=== PATIENT | female | born 1995 | race American Indian/Alaskan Native ===

== ENCOUNTER 2022-03-20 19:48 | Outpatient (CLI) | payer MEDICAID ==
[2022-03-20 23:24] VITALS: BP 134/84
[2022-03-20 23:39] LABS: Basophils % (Auto) 0.3 % (0.0-1.8); Eosinophils % (Auto) 0.3 % (0.0-4.3); Hemoglobin 9.4 gm/dl (10.1-14.3); Lymphocytes # (Auto) 1.7 K/mm3 (1.2-5.4); Lymphocytes % (Auto) 13.8 % (13.4-35.0); Mean Corpuscular HGB Conc 30 % (30-34); Mean Corpuscular Volume 71 fl (79-97); Monocytes # (Auto) 1.3 K/mm3 (0.0-0.8); Monocytes % (Auto) 10.9 % (0.0-7.3); Platelet Count 266 K/mm3 (140-440); Red Blood Count 4.38 M/mm3 (3.65-5.03); Red Cell Distribution Width 15.4 % (13.2-15.2)
[2022-03-20 23:40] LABS: Mucus,Urine FEW /HPF
[2022-03-20 23:54] LABS: Amphetamine Screen,Urine PRESUMPTIVE NEGATIVE; Benzodiazepines Screen,Urine PRESUMPTIVE NEGATIVE; Cannabinoid Screen,Urine PRESUMPTIVE POSITIVE; Cocaine Screen,Urine PRESUMPTIVE NEGATIVE; Methadone Screen,Urine PRESUMPTIVE NEGATIVE; Opiate Screen,Urine PRESUMPTIVE NEGATIVE
[2022-03-20 23:58] LABS: Bilirubin,Urine NEG (Negative); Blood,Urine SM (Negative); Color,Urine Yellow (Yellow); Urobilinogen,Urine < 2.0 mg/dL (<2.0)
--- NOTE | 2022-03-21 01:01 | Ultrasound Report ---
US OB follow up INDICATION / CLINICAL INFORMATION: TAPAN, EFW, GESTATIONAL AGE COMPARISON: None available. TECHNIQUE: Using a transcutaneous probe, multiple grayscale, color Doppler, and spectral Doppler imag es of the uterus and fetus were captured and stored. FINDINGS: Single cephalic fetus with heart rate of 154 bpm. Amniotic fluid index is within normal limits with TAPAN of 19.2 cm. Biparietal Diameter = 7.3 cm = 29, 1 weeks, days Head Circumference = 26.9 cm = 29, 2 weeks, days Abdominal Circumference = 23.4 cm = 27, 5 weeks, days Femur Length = 5.5 cm = 28, 6 weeks, days Average Ultrasound Age (AUA) = 28, 5 weeks, days. EDC 06/07/2022. Clinical estimated gestational age based on LMP of 06/22/2021 is 38 weeks 5 days, EDC 03/29/2022. Estimated weight = 1217 g. Growth percentile not calculated. IMPRESSION: 1. IUGR is suggested. 2. Single living fetus with estimated gestational age of 28 weeks 5 days, a significant discrepancy f rom clinical estimate of 38 weeks 5 days. 3. Amniotic fluid index is within normal limits. 4. Estimated weight of 1217 g. Signer Name: Frandy Torre II, MD Signed: 03/21/2022 12:57 AM Workstation Name: [id number]
[2022-03-21] MEDS ORDERED: TERBUTALINE 1 MG/1 ML INJ SUB-Q ONE (01:21)
== END 2022-03-21 00:51 | disposition home or self-care (01) ==
LOC: TRG 19:48 → APU 19:50 → TRG 03-21 00:51
PROVIDERS: ATTEND Obstetrics & Gynecology
DX: O26.893 Other specified pregnancy related conditions, third trimester (principal); R10.9 Unspecified abdominal pain; M54.50 Low back pain, unspecified; Z3A.38 38 weeks gestation of pregnancy
CPT/HCPCS: 36415; 76816; 80307; 81001; 85025; 87076; 87086; 87186

== ENCOUNTER 2022-05-30 14:44 | Inpatient (IN) | payer MEDICAID ==
--- NOTE | 2022-05-31 06:28 | Ultrasound Report ---
US OB follow up INDICATION / CLINICAL INFORMATION: WELL BEING COMPARISON: None available. TECHNIQUE: Using a transcutaneous probe, multiple grayscale, color Doppler, and spectral Doppler imag es of the uterus and fetus were captured and stored. biophysical profile score was performed. FINDINGS: biophysical profile score of 4/8. heart rate 153 bpm. Score of 0 for posturing tone . Score of 0 for qualitative amniotic fluid volume. Estimated weight is 39 weeks 0 days. TAPAN 1.6 cm. IMPRESSION: 1. biophysical profile score 4/8. Signer Name: Frandy Torre II, MD Signed: 05/31/2022 6:24 AM Workstation Name: [id number]
--- NOTE | 2022-05-31 06:30 | Ultrasound Report ---
US OB BPP wo non-stress INDICATION / CLINICAL INFORMATION: WELL BEING COMPARISON: None available. FINDINGS: BREATHING MOVEMENT = 2 GROSS BODY MOVEMENT = 2 TONE = 0 QUALITATIVE AMNIOTIC FLUID VOLUME = 0 TOTAL BIOPHYSICAL SCORE = 4/8 heart rate 153 bpm. TAPAN 1.6 cm. IMPRESSION: 1. biophysical profile score as detailed. Signer Name: Frandy Torre II, MD Signed: 05/31/2022 6:26 AM Workstation Name: [id number]
[2022-05-31] MEDS ORDERED: METOCLOPRAMIDE 10 MG/2 ML INJ IV SCH (07:30)
[2022-05-31] MEDS ORDERED: BICITRA ORAL LIQD 30ML PO SCH (07:30)
[2022-05-31] MEDS ORDERED: FAMOTIDINE 20 MG/2 ML INJ IV SCH (07:30)
[2022-05-31] MEDS ORDERED: LACTATED RINGERS 1,000 ML IV SCH (07:30)
[2022-05-31] MEDS ORDERED: ceFAZolin/Water 2 GM/20 ML 2 GM/20 ML SYRINGE IV NR (08:00)
[2022-05-31] MEDS ORDERED: OXYTOCIN DRIP 30 UNITS/500 ML BAG IV SCH ×2 (08:00→11:00)
[2022-05-31] MEDS ORDERED: METHYLERGONOVINE MALEATE 0.2 MG/ML VIAL IM ONE (08:09)
[2022-05-31] MEDS ORDERED: OXYTOCIN 10 UNIT/1 ML INJ ONE (08:11)
[2022-05-31] MEDS ORDERED: miSOPROStol 200 MCG TAB ONE (08:11)
--- NOTE | 2022-05-31 08:12 | Anesthesia Day of Surgery ---
Anesthesia Day of Surgery - Day of Surgery Patient Examined: Yes Patient H&P Reviewed: Yes Patient is NPO: Yes
--- NOTE | 2022-05-31 08:17 | Anesthesia Consultation ---
Anesthesia Consult and Med Hx Date of service: 05/31/22 - Airway Anesthetic Teeth Evaluation: Good Mallampati Class: Class III Intubation Access Assessment: Possibly Difficult - Pulmonary Exam CTA: Yes - Cardiac Exam Anesthetic Concerns: csection x2 2019 - Pre-Operative Health Status ASA Pre-Surgery Classification: ASA3 Proposed Anesthetic Plan: Spinal - Pulmonary Hx Smoking: No Hx Asthma: No Hx Respiratory Symptoms: No - Cardiovascular System Hx Hypertension: No - Central Nervous System Hx Seizures: No Hx Back Pain: Yes Hx Psychiatric Problems: Yes (anxiety ) - Gastrointestinal Hx Gastroesophageal Reflux Disease: No - Endocrine Hx Renal Disease: No Hx Hypothyroidism: No Hx Hyperthyroidism: No - Hematic Hx Anemia: No Hx Sickle Cell Disease: No - Other Systems Hx Alcohol Use: No Hx Substance Use: No Hx Obesity: Yes
[2022-05-31 08:18] LABS: Basophils # (Auto) 0.1 K/mm3 (0.0-0.1); Basophils % (Auto) 0.7 % (0.0-1.8); Eosinophils % (Auto) 0.4 % (0.0-4.3); Lymphocytes # (Auto) 2.2 K/mm3 (1.2-5.4); Lymphocytes % (Auto) 26.8 % (13.4-35.0); Mean Corpuscular HGB Conc 30 % (30-34); Mean Corpuscular Volume 70 fl (79-97); Monocytes % (Auto) 12.1 % (0.0-7.3); Platelet Count 314 K/mm3 (140-440); Red Blood Count 4.63 M/mm3 (3.65-5.03); Red Cell Distribution Width 18.6 % (13.2-15.2)
--- NOTE | 2022-05-31 08:19 | History and Physical Report ---
History of Present Illness Date of examination: 05/30/22 Date of admission: 05/30/22 Chief complaint: Abd pain History of present illness: by . 39 wks. Oligo and IUGR on sono. No care except for an ER visit to [facility] where she was given a due date of 06/06/22 Past History Past Medical History: no pertinent history Past Surgical History: section Social history: no significant social history - Obstetrical History Expected Date of Delivery: 06/06/22 Actual Gestation: 39 Week(s) 1 Day(s) : 2 Para: 1 Medications and Allergies Allergies Allergy/AdvReac Type Severity Reaction Status Date / Time No Known Allergies Allergy Verified 05/31/22 08:00 Home Medications Medication Instructions Recorded Confirmed Last Taken Type No Known Home Medications [No 05/30/22 05/30/22 Unknown History Reported Home Medications] Active Meds: Active Medications Acetaminophen (Acetaminophen 325 Mg Tab) 650 mg PO Q4H PRN PRN Reason: Pain, Mild (1-3) Butorphanol Tartrate (Butorphanol 2 Mg/1 Ml Inj) 1 mg IV Q2H PRN PRN Reason: Pain, Moderate(4-6) LABOR PAIN Citric Acid/Sodium Citrate (Bicitra Oral Liqd 30ml) 30 ml PO ONCE ONE Stop: 05/31/22 07:12 Famotidine (Famotidine 20 Mg/2 Ml Inj) 20 mg IV ONCE ONE Stop: 05/31/22 07:12 Fentanyl (Fentanyl 100 Mcg/2 Ml Inj) 100 mcg IV Q2H PRN PRN Reason: Pain,Severe (7-10) LABOR PAIN Lactated Ringer's (Lactated Ringers) 1,000 mls @ 2,250 mls/hr IV PREOP BRITTNEY Stop: 06/01/22 07:42 Cefazolin Sodium (Ancef/Sterile Water 2 Gm/20 Ml) 2 gm in 20 mls @ 80 mls/hr IV PREOP NR; Protocol Oxytocin/Sodium Chloride (Pitocin/Ns 30 Unit/500ml) 30 units in 500 mls @ 0 mls/hr IV TITR BRITTNEY; Protocol Thiamine HCl 100 mg/ Folic Acid 1 mg/ Multivitamins/Minerals 10 ml/ Sodium Chloride 1,011.2 mls @ 250 mls/hr IV ONCE ONE Stop: 05/31/22 12:11 Metoclopramide HCl (Metoclopramide 10 Mg/2 Ml Inj) 10 mg IV ONCE ONE Stop: 05/31/22 07:12 Review of Systems All systems: negative Gastrointestinal: abdominal pain Genitourinary: other (IUGR/OLIGO on sono.) - Vital Signs Vital signs: Vital Signs Temp 97.9 F 05/30/22 16:00 Temp Pulse Resp BP Pulse Ox 98.8 F 77 16 117/62 99 05/31/22 07:38 05/31/22 08:08 05/31/22 07:38 05/31/22 07:38 05/31/22 08:08 - Physical Exam Lungs: Positive: Normal air movement Abdomen: Positive: normal appearance, soft, distention. Negative: tenderness, guarding Uterus: Positive: enlarged, normal contour Extremities: Positive: normal Deep Tendon Reflex Grade: Normal +2 - Obstetrical FHR: auscultation normal Uterine Contraction Pattern: Absent Results All other labs normal. Assessment and Plan - Patient Problems (1) with 39 completed weeks gestation Current Visit: Yes Status: Acute (2) IUGR (intrauterine growth restriction) affecting care of mother Current Visit: Yes Status: Acute (3) No care in current Current Visit: Yes Status: Acute (4) Previous delivery affecting Current Visit: Yes Status: Acute (5) Oligohydramnios Current Visit: Yes Status: Acute Qualifiers: Fetus number: single or unspecified fetus Plan to address problem: For delivery lyla.
[2022-05-31 08:20] LABS: Amphetamine Screen,Urine Negative; Benzodiazepines Screen,Urine Negative; Cannabinoid Screen,Urine Negative; Cocaine Screen,Urine Negative; Methadone Screen,Urine Negative; Opiate Screen,Urine Negative
[2022-05-31 08:26] LABS: Hematocrit 32.5 % (30.3-42.9); Hemoglobin 9.8 gm/dl (10.1-14.3)
[2022-05-31] MEDS ORDERED: BUTORPHANOL 2 MG/1 ML INJ IV PRN (08:30)
[2022-05-31] MEDS ORDERED: fentaNYL 100 MCG/2 ML INJ IV PRN (08:30)
[2022-05-31] MEDS ORDERED: ACETAMINOPHEN 325 MG TAB PO PRN ×2 (08:30→10:31)
[2022-05-31 08:34] LABS: Mucus,Urine FEW /HPF; WBC,Urine < 1.0 /HPF (0.0-6.0)
[2022-05-31 08:41] LABS: Color,Urine Straw (Yellow)
[2022-05-31] MEDS ORDERED: BUPIVACAINE/PF (0.5%) 5 MG/1 ML 30 ML VIAL INFILTRATI ONE (08:47)
[2022-05-31] MEDS ORDERED: ONDANSETRON 4 MG/2 ML INJ ONE ×2 (08:48)
[2022-05-31] MEDS ORDERED: SODIUM CHLORIDE 0.9% IRR 1,500 ML BOTTLE IR ONE (09:00)
[2022-05-31] MEDS ORDERED: THIAMINE 100 MG, FOLIC ACID 1 MG, MULTIPLE VITAMIN INJ, ADULT 10 ML in SODIUM CHLORIDE ... IV ONE (09:00)
[2022-05-31] MEDS ORDERED: WATER FOR IRRIG STERILE 1,500 ML BOTTLE IR ONE (09:00)
[2022-05-31] MEDS ORDERED: ceFAZolin/STERILE WATER 2 GM/20 ML SYRINGE IV ONE (09:15)
[2022-05-31] MEDS ORDERED: KETOROLAC 30 MG/1 ML INJ ONE (09:35)
[2022-05-31] MEDS ORDERED: PHENYLEPHRINE/NS 1,000 MCG/10 ML SYRINGE (OR USE) IV ONE (09:36)
[2022-05-31] MEDS ORDERED: dexAMETHasone 20 MG/5 ML VIAL ONE (09:36)
[2022-05-31] MEDS ORDERED: SODIUM CHLORIDE 0.9% 100 ML ONE (09:37)
--- NOTE | 2022-05-31 09:45 | Progress Note ---
Spinal Anesthesia Block - Spinal Anesthesia Block Start Time: 08:59 Stop Time: 09:05 Performed by:: PATRICIA JARAMILLO Procedure: Patient IDed, H&P reviewed, all questions and concerns were answered, and consent was signed. Timeout was performed at bedside. Patient in sitting position. Sterile prep and drape was performed. [3] ml of 1% lidocaine skin wheal at L[3]- L [4]. Needle introducer advanced. 25 gauge spinal needle advanced. Clear, free flowing CSF. negative blood, negative paresthesia. 0.75% Bupivacaine 10mg and Precedex 0.5 mcg given. All needles removed. Patient tolerated procedure.
[2022-05-31] MEDS ORDERED: MORPHINE 4 MG/1 ML INJ IV PRN (10:31)
[2022-05-31] MEDS ORDERED: IBUPROFEN 600 MG TAB PO PRN (10:31)
[2022-05-31] MEDS ORDERED: PROMETHAZINE 25 MG RECT SUPP PR PRN (10:31)
[2022-05-31] MEDS ORDERED: LANOLIN/ZINC/DIMETHICONE (LANSINOH) 7 GM TP PRN (10:31)
[2022-05-31] MEDS ORDERED: KETOROLAC 30 MG/1 ML INJ IV PRN ×2 (10:31)
[2022-05-31] MEDS ORDERED: NALOXONE 0.4 MG/1 ML INJ IV PRN (10:31)
[2022-05-31] MEDS ORDERED: ONDANSETRON 4 MG/2 ML INJ IV PRN (10:31)
[2022-05-31] MEDS ORDERED: WITCH HAZEL/ GLYCERIN PAD TP PRN (10:31)
[2022-05-31] MEDS ORDERED: MORPHINE 2 MG/1 ML INJ IV PRN (10:31)
[2022-05-31] MEDS ORDERED: SIMETHICONE 80 MG CHEW TAB PO PRN (10:31)
[2022-05-31] MEDS ORDERED: MAGNESIUM HYDROXIDE (MOM) ORAL LIQD UDC PO PRN (10:31)
--- NOTE | 2022-05-31 10:50 | Operative Report ---
Operative Report Operative Report: Date of surgery: May 31, 2022 Preoperative diagnoses: 39 weeks and 1 day, oligohydramnios, IUGR, no care, previous section Postoperative diagnoses: The same. Operation: Lower segment transverse delivery Surgeon:Milo Queen MD Entry Level Marketing Representative: Chery Snyder CRNA Anesthesia: Spinal block Estimated blood loss: 100 mL Complications: None Findings: Live baby boy, vertex, wrinkled skin, minimal amniotic fluid, Apgars 8/9, weight 2800 g. Both ovaries and fallopian tubes as well as the uterus were unremarkable gravid structures. There was a solitary narrow band of scar tissue binding the most inferior aspects of the greater omentum to the anterior parietal peritoneum 6 cm inferior to the navel. Procedure in detail: The patient was taken to the operating room and given a spinal block. Patient was placed in the straight supine position and a Jenkins catheter was inserted. The patient was prepped in the abdomen. The drapes were placed. A timeout was done. With the go ahead from the rebrander, a Pfannenstiel incision was made. This incision was carried across the subcutaneous layer to the fascia which was also divided transversely. The recti abdominis muscle flaps were stripped from the fascia using a combination of blunt and sharp dissections. The muscles were in the midline to gain access to the anterior parietal peritoneum which was divided after excluding any underlying viscera. The access to the peritoneal cavity was then widened by manual stretching. The bladder blade was applied. The utero vesicle peritoneal flap was divided transversely allowing the bladder to be displaced caudally. The uterine incision was placed in the lower segment transversely. The uterine incision was carried to the decidual layer. The uterine incision was extended on both sides using the bandage scissors. The amniotic sac was ruptured with clear fluid. The head was lifted out of the false maternal pelvis and delivered through the incision using fundal pressure combined with traction using the Kiwi. The airways were bulb suctioned beginning with the mouth. Continuing fundal pressure combined with traction on the mandibular processes of the jaw delivered the rest of the baby. The umbilical cord was double clamped and divided. The baby was carefully transferred to the pediatric team. The placenta was manually removed from the uterine cavity. The uterine cavity was explored and was empty of any placental remnants. The uterine incision was repaired in 2 layers with #1 Vicryl. The band of adhesions described above was divided between 2 pairs of Kellys forceps followed by cauterization of the stumps. The surgical line on the uterus was hemostatic. Blood and clots were cleared from the peritoneal cavity. The anterior parietal peritoneum was repaired with #1 Vicryl. The fascia was repaired with #1 Vicryl. The subcutaneous layer was made hemostatic using the Bovie before the skin was closed subcuticularly with 4-0 Vicryl. There were no complications. The estimated blood loss was 100 mL. All sponges and instrument counts were correct. Patient was safely transferred to the recovery room.
[2022-05-31] MEDS ORDERED: ceFAZolin/NS 1 GM/50 ML 1 GM/50 ML BAG IV SCH ×2 (11:00→22:00)
--- NOTE | 2022-05-31 11:01 | Progress Note ---
Regional Anesthesia Block - Regional Anesthesia Block Start Time: 10:11 Stop Time: 10:15 Performed By:: PATRICIA JARAMILLO Procedure: Patient consented for TAP block for post surgical pain management. Patient identified, monitors placed, and time out performed. TAP identified bilaterally via ultrasound. Skin prepped bilaterally with [chlorhexidine] and [22g stimuplex] needle advanced to the TAP. [Marcaine 0.22% 35ml] injected under ultrasound guidance on the [left] side. [Marcaine 0.22% 35ml] injected under ultrasound guidance on the [right] side. Negative aspiration every 5mL, No change in heart rate or rhythm. Patient tolerated the procedure well. No apparent complications seen.
[2022-05-31] MEDS: SODIUM CHLORIDE 0.9% 1000 ML 1,000 ML IV SCH (14:12)
[2022-05-31 14:17] LABS: Hepatitis C Virus Antibody Non-Reactive (NonReactive)
[2022-05-31] MEDS: HYDROcodone/ACETAMINOPHEN 5-325 MG TAB PO PRN (21:54)
[2022-06-01] MEDS: SODIUM CHLORIDE 0.9% 1000 ML 1,000 ML IV SCH (00:54)
[2022-06-01 01:52] LABS: Hematocrit 28.7 % (30.3-42.9); Hemoglobin 8.7 gm/dl (10.1-14.3)
[2022-06-01] MEDS: HYDROcodone/ACETAMINOPHEN 5-325 MG TAB PO PRN ×3 (05:11→17:55)
[2022-06-01] MEDS: IBUPROFEN 800 MG TAB PO PRN ×3 (07:54→22:53)
[2022-06-01] MEDS: FERROUS SULFATE 325 MG TAB PO SCH (10:34)
[2022-06-01] MEDS: PRENATAL VIT27-FE FUMARATE-FOLIC ACID VIT TAB PO SCH (10:34)
--- NOTE | 2022-06-01 10:57 | Progress Note ---
Assessment and Plan - Patient Problems (1) with 39 completed weeks gestation Current Visit: Yes Status: Resolved (2) IUGR (intrauterine growth restriction) affecting care of mother Current Visit: Yes Status: Resolved (3) No care in current Current Visit: Yes Status: Resolved (4) Previous delivery affecting Current Visit: Yes Status: Chronic (5) Oligohydramnios Current Visit: Yes Status: Resolved Qualifiers: Fetus number: single or unspecified fetus (6) Status post delivery Current Visit: Yes Status: Acute Plan to address problem: Stable. Subjective - Subjective Date of service: 06/01/22 Principal diagnosis: Status post day 1. Interval history: by . 39 wks. Oligo and IUGR on sono. No care except for an ER visit to [facility] where she was given a due date of 06/06/22 C/S 05/31/22 No complaints today. Patient reports: appetite normal, voiding normally, pain well controlled, ambulating normally : doing well Objective - Vital Signs Latest vital signs: Vital Signs Temp Pulse Resp BP BP Pulse Ox Pulse Ox 06/01/22 08:15 97 06/01/22 07:22 98.9 F 63 18 118/61 96 06/01/22 05:14 97.9 F 64 20 143/77 96 06/01/22 05:10 98 06/01/22 04:05 98 06/01/22 01:50 98 06/01/22 00:50 98.1 F 72 20 106/51 98 06/01/22 00:30 98 05/31/22 21:48 98 05/31/22 20:12 98.8 F 69 20 119/54 98 05/31/22 19:50 98 05/31/22 16:15 98.0 F 61 18 106/58 99 05/31/22 12:39 98/53 05/31/22 12:28 69 18 98 05/31/22 11:40 97.7 F 76 16 98/48 100 100 05/31/22 11:15 97.7 F 65 11 L 99/46 99 05/31/22 11:00 54 L 14 102/66 99 Intake and Output 05/31/22 06/01/22 06/01/22 23:59 07:59 15:59 Intake Total 1120 360 Output Total 550 1500 600 Balance 570 -1140 -600 Intake: IV 1000 NaCl 0.9% 1000 ml 1,000 1000 ml @ 125 mls/hr IV DIRECT BRITTNEY Rx#:[id number] Oral 120 Intake, Free Water 120 240 Output: Urine 550 1500 600 Indwelling Catheter 550 450 Uretheral (Jenkins) 450 Void 600 600 Other: Total, Intake Amount 120 Total, Output Amount 550 600 600 # Voids Indwelling Catheter 1,200 Void 1 1 - Exam Lungs: Present: Normal air movement Abdomen: Present: normal appearance, soft, normal bowel sounds Uterus: Present: normal, firm Extremities: Present: normal Deep Tendon Reflex Grade: Normal +2 Incision: Present: normal, dry, intact - Labs Labs: Abnormal lab results 06/01/22 Range/Units 01:40 Hgb 8.7 L (10.1-14.3) gm/dl Hct 28.7 L (30.3-42.9) %
--- NOTE | 2022-06-01 16:02 | Post Anesthesia Evaluation ---
- Post Anesthesia Evaluation Patient Participated: Yes Airway Patent: Yes Stable Respiratory Function: Yes Nausea/Vomiting: No Temp > 96.8F: Yes Pain Manageable: Yes Adequeate Hydration: Yes Anesthesia Complications: No Block Receding Appropriately: Yes Patient on Ventilator: No
[2022-06-02] MEDS: IBUPROFEN 800 MG TAB PO PRN (09:04)
[2022-06-02 09:45] VITALS: BP 142/81
--- NOTE | 2022-06-02 09:59 | Progress Note ---
Assessment and Plan - Patient Problems (1) with 39 completed weeks gestation Current Visit: Yes Status: Resolved (2) IUGR (intrauterine growth restriction) affecting care of mother Current Visit: Yes Status: Resolved (3) No care in current Current Visit: Yes Status: Resolved (4) Previous delivery affecting Current Visit: Yes Status: Chronic (5) Oligohydramnios Current Visit: Yes Status: Resolved Qualifiers: Fetus number: single or unspecified fetus (6) Status post delivery Current Visit: Yes Status: Acute Plan to address problem: Stable. Ready for d/c. Subjective - Subjective Date of service: 06/02/22 Principal diagnosis: Status post day 2. Interval history: by . 39 wks. Oligo and IUGR on sono. No care except for an ER visit to [facility] where she was given a due date of 06/06/22 C/S 05/31/22 No complaints today. 06/02/22 No complaints. Patient reports: appetite normal, voiding normally, pain well controlled, ambulating normally : doing well Objective - Vital Signs Latest vital signs: Vital Signs Temp Pulse Resp BP BP Pulse Ox Pulse Ox 06/02/22 08:56 98.1 F 77 18 142/81 97 06/02/22 05:55 98 06/02/22 03:30 98 06/02/22 02:05 98.3 F 77 20 144/76 98 06/02/22 01:45 98 06/01/22 23:50 98 06/01/22 21:35 98 06/01/22 19:55 98 06/01/22 16:30 99.0 F 63 18 121/63 98 Intake and Output 06/01/22 06/02/22 06/02/22 23:59 07:59 15:59 Intake Total 1080 360 Balance 1080 360 Intake: Oral 600 360 Intake, Free Water 480 Other: Total, Intake Amount 240 120 # Voids Void 1 1 - Exam Lungs: Present: Normal air movement Abdomen: Present: normal appearance, soft, normal bowel sounds Uterus: Present: normal, firm Extremities: Present: normal Incision: Present: dry, intact - Labs Labs: Abnormal lab results 05/31/22 Range/Units 08:00 Crossmatch See Detail
[2022-06-02] MEDS: PRENATAL VIT27-FE FUMARATE-FOLIC ACID VIT TAB PO SCH (10:02)
[2022-06-02] MEDS: FERROUS SULFATE 325 MG TAB PO SCH (10:02)
--- NOTE | 2022-06-02 10:02 | Discharge Summary ---
Providers - Providers Date of Admission: 05/31/22 07:59 Date of discharge: 06/02/22 Attending physician: ISIS HERNANDEZ MD 06/02/22 07:08 Consult to Case Management [CONS] Routine Services Needed at Discharge: Other Notified:: ext [phone] Was contact made?: No Additional Physician Instructions: No care. Mother's sister adopting infant. Primary care physician: ISIS HERNANDEZ MD Hospitalization Reason for admission: section, observation, IUP at term, other (IUGR, Oligo) Delivery: Procedure: repeat low transverse Episiotomy: none Laceration: none Incision: normal, dry, intact Other procedures: none complications: none Discharge diagnosis: IUP at term delivered [place] baby: male Condition at discharge: Good Disposition: 01 HOME / SELF CARE / HOMELESS - Discharge Diagnoses (1) with 39 completed weeks gestation Status: Resolved (2) IUGR (intrauterine growth restriction) affecting care of mother Status: Resolved (3) No care in current Status: Resolved (4) Previous delivery affecting Status: Chronic (5) Oligohydramnios Status: Resolved Qualifiers: Fetus number: single or unspecified fetus (6) Status post delivery Status: Acute Plan - Provider Discharge Summary Activity: routine, no sex for 6 weeks, no heavy lifting 4 weeks, no strenuous exercise Diet: routine Instructions: routine Additional instructions: [] Smoking cessation referral if applicable(refer to patient education folder for contact #) [] Refer to [facility]'s [facility] Booklet Call your doctor immediately for: * Fever > 100.5 * Heavy vaginal bleeding ( >1 pad per hour) * Severe persistent headache * Shortness of breath * Reddened, hot, painful area to leg or breast * Drainage or odor from incision. * Keep incision clean and dry at all times and follow doctor's instructions regarding bathing/showering - Follow up plan Follow up: ISIS HERNANDEZ MD [Primary Care Provider] - 7 Days Forms: Work/School Excuse Out Patient
[2022-06-02] MEDS: HYDROcodone/ACETAMINOPHEN 5-325 MG TAB PO PRN (10:17)
== END 2022-06-02 14:45 | disposition home or self-care (01) | DRG 765 ==
LOC: TRG 14:44 → APU 14:47 → TRG 05-31 07:59 → APU 05-31 07:59 → OB 05-31 12:05
PROVIDERS: ADMIT Obstetrics & Gynecology; ATTEND Obstetrics & Gynecology
PROC: 10D00Z1 Extraction of Products of Conception, Low, Open Approach (ICD-10-PCS; principal; 2022-05-31)
PROC: 3E0T3BZ Introduction of Anesthetic Agent into Peripheral Nerves and Plexi, Percutaneous Approach (ICD-10-PCS; 2022-05-31)
DX: O36.5930 Maternal care for other known or suspected poor fetal growth, third trimester, not applicable or unspecified (principal); O41.03X0 Oligohydramnios, third trimester, not applicable or unspecified; Z37.0 Single live birth; Z20.822 Contact with and (suspected) exposure to COVID-19; O34.211 Maternal care for low transverse scar from previous cesarean delivery; N85.8 Other specified noninflammatory disorders of uterus; Z3A.39 39 weeks gestation of pregnancy
CPT/HCPCS: 36415; 76816; 76819; 80307; 81001; 85014; 85018; 85025; 86592; 86706; 86762; 86803; 86850; 86900; 86901; 86920; 87806; G0378; J3490; J7121; J0690; J1100; J1885; J2270; J2370; J2405; J2765; J3411; J7030; J7120; U0003